=== PATIENT | male | born 1985 ===

== ENCOUNTER 2016-11-10 21:27 | Emergency (ER) | payer OTHER ==
[2016-11-10 21:39] VITALS: BP 132/69; PULSE 84; RESP 18; TEMP 97.9; O2SAT 100
[2016-11-10] MEDS ORDERED: DiphenhydrAMINE 50 mg/ml Inj IVP STA (21:57)
[2016-11-10] MEDS ORDERED: DiphenhydrAMINE 50 mg/ml Inj ONE (22:00)
--- NOTE | 2016-11-10 22:02 | ED PDOC ---
HPI: General Adult Time Seen by Provider: 11/10/16 21:39 Chief Complaint (Nursing): Abnormal Skin Integrity History Per: Patient Additional Complaint(s): Pt. states for the past week he's had an extremely pruritic rash throughout body. Reports having similar rash in the past and has been dx as eczema. He has been using benadryl without relief (last dose this AM). Pt. states he is usually prescribed an oral steroid. Denies fever, pain, sore throat. Past Medical History Reviewed: Historical Data, Nursing Documentation, Vital Signs Vital Signs: Last Vital Signs Temp 97.9 F 11/10/16 21:37 Pulse 84 11/10/16 21:37 Resp 18 11/10/16 21:37 BP 132/69 11/10/16 21:37 Pulse Ox 100 11/10/16 21:37 - Medical History Other PMH: eczema - Family History Family History: States: No Known Family Hx - Home Medications Home Medications: Ambulatory Orders Medication Instructions Recorded Hydroxyzine HCl 1 - 2 tab PO Q6 PRN #30 tablet 11/10/16 Methylprednisolone [Medrol Dose 4 mg PO DAILY #21 mg 11/10/16 Pack (21 tabs)] - Allergies Allergies/Adverse Reactions: Allergies Allergy/AdvReac Type Severity Reaction Status Date / Time No Known Allergies Allergy Verified 11/10/16 21:37 Review of Systems ROS Statement: Except As Marked, All Systems Reviewed And Found Negative Skin: Positive for: Rash Physical Exam - Physical Exam Appears: Positive for: Well, Non-toxic, No Acute Distress Skin: Positive for: Normal Color, Warm, Rash (scattered erythematous papules and plaques on both axilla, b/l chest, b/l medial thighs without vesicles or pustules) - ECG O2 Sat by Pulse Oximetry: 100 - Progress ED Course And Treament: Benadryl 50mg IV, solu-medrol 125mg IV, pepcid 20mg IV given. Disposition - Clinical Impression Clinical Impression: Eczema - Patient ED Disposition Is Patient to be Admitted: No - Disposition Referrals: [facility] [Outside] Disposition: Routine/Home Disposition Time: 22:11 Condition: STABLE Prescriptions: Hydroxyzine HCl 1 - 2 tab PO Q6 PRN #30 tablet PRN Reason: Itching / Pruritus Methylprednisolone [Medrol Dose Pack (21 tabs)] 4 mg PO DAILY #21 mg Instructions: Acute Rash (ED) Forms: [facility] (Estonian) Print Language: WALLISIAN
== END 2016-11-10 22:41 | disposition home or self-care (01) ==
LOC: H.ER 21:27
DX: R21 Rash and other nonspecific skin eruption (principal)